=== PATIENT | male | born 1950 | race Caucasian/White ===

== ENCOUNTER 2018-06-25 20:19 | Emergency (ER) | payer OTHER, MEDICAID ==
[~2018-06-25] VITALS: Ht 182.8 cm; Wt 113.4 kg
--- NOTE | ~2018-06-25 | EKG ---
[place], [place] ELECTROCARDIOGRAM REPORT NAME: CHERIE HADDAD UNIT #: [id number] ROOM: DOCTOR: EPIPHANY DRAFT REPORT BIRTHDATE: [birth year] [facility] Test Date: 2018-06-25 Test Time: 20:40:13 Pat Name: CHERIE HADDAD Department: ER Room: Gender: [employer] Sales Representative: Jie Mclain : 1950 Requested By: JAYME CHAHAL Order Number: [id number] Reading MD: Esperanza Molina MD Measurements Intervals [place] Rate: 107 P: 25 KS: 51 QRS: -48 QRSD: 114 T: 46 QT: 340 QTc: 454 Interpretive Statements Sinus tachycardia Multiple ventricular premature complexes Left anterior fascicular block Anterior infarct, old Electronically Signed On 06-27-2018 2:16:06 PST by Esperanza Molina MD CM:EKGRPT:ELECTROCARDIOGRAM REPORT 39 JAYME FLOREZ DRAFT REPORT JAYME CHAHAL DO
[~2018-06-25 20:19] MED LIST: ACETAMINOPHEN-H1 TA2 PO; AMLODIPINE10 MG PO; ANAPROX DS550 MG PO; ANTIVERT/2525 MG PO; ASPIRIN CHEWABL81 M1 PO; ASPIRIN ENTERIC81 M1 PO; ASPIRIN325 MG PO; ATIVAN1 MG PO; BACTRIM DS 8001 TA1 PO; BLOOD PRESSURE MED; BLOOD PRESSURE PILL PO; CIPRO500 MG PO; CIPROFLOXACIN500 M4 PO; COREG25 MG PO; DESITIN MAXIMUM S40% T; DOXYCYCLINE MO100 M1 PO; FAMOTIDINE40 MG PO; FENOFIBRATE160 MG PO; FUROSEMIDE20 MG PO; GLUCOPHAGE500 M1 PO; GLYBURIDE5 MG PO; HUMALOG100 U/ML SC; LANTUS100 U/ML SC; LISINOPRIL10 M1 PO; LISINOPRIL10 MG PO; LISINOPRIL5 MG PO; LOMOTIL 0.025 M1 TA1 PO; LOPRESSOR25 MG PO; MECLIZINE HCL25 M2 PO; NORVASC10 MG PO; NOVOLOG 70/30 M10 ML SC; NOVOLOG100 U/ML SC; PEPCID20 MG PO; PLAVIX75 M1 PO; PLAVIX75 MG PO; PRAVACHOL20 MG PO; PRAVACHOL80 M1 PO; PRILOSEC40 MG PO; VICODIN 5/500 505 MG PO; VISTARIL25 MG PO; VOLTAREN50 M1 PO; ZESTRIL,PRINIVI20 MG PO
[2018-06-25 20:47] LABS: BASO % 0.6 % (0.0-1.0); EOS # 0.1 10*3/uL (0.0-0.4); EOS % 1.1 % (1.0-4.0); HEMATOCRIT 39.8 % (42.0-52.0); LYMPH # 1.2 10*3/uL (1.3-4.4); LYMPH % 25.3 % (27.0-41.0); MEAN CELL VOLUME 88.8 fl (80.0-94.0); MEAN CORPUSCULAR HGB CONC 32.7 g/dl (33.0-37.0); MEAN PLATELET VOLUME 9.3 fl (9.6-12.3); MONO # 0.3 10*3/uL (0.1-1.0); NEUT # 3.1 10*3/uL (2.3-7.9); NEUT % 65.8 % (47.0-73.0); PLATELET COUNT AUTOMATED 181 10*3/uL (130-400); RED BLOOD COUNT 4.48 10*6/uL (4.50-5.90); RED CELL DISTRI WIDTH 13.8 % (0-14.5); WHITE BLOOD COUNT 4.7 10*3/uL (4.8-10.8)
[2018-06-25 20:56] LABS: BILIRUBIN NEGATIVE (NEGATIVE); BLOOD NEGATIVE (NEGATIVE); CLARITY CLEAR (CLEAR); COLOR YELLOW (YELLOW); GLUCOSE 3+ (NEGATIVE); KETONE NEGATIVE (NEGATIVE); LEUKO ESTERASE NEGATIVE (NEGATIVE); NITRITE NEGATIVE (NEGATIVE); PH 6.5 (5.0-9.0); SPECIFIC GRAVITY <= 1.005 (1.005-1.030); UROBILINOGEN 0.2 E.U./dl (0.2-1.0)
[2018-06-25 21:03] LABS: ACETAMINOPHEN (TYLENOL) < 5.0 ug/ml (10-30); ALBUMIN 3.7 gm/dl (3.1-4.5); ALKALINE PHOSPHATASE 120 U/L (45-117); BUN 17 mg/dl (7-24); CHLORIDE 100 mmol/L (98-107); CREATININE 1.03 mg/dL (0.70-1.30); POTASSIUM 4.1 mmol/L (3.5-5.1); SGOT/AST 12 IU/L (3-35); SGPT/ALT 24 U/L (12-78); SODIUM 138 mmol/L (136-145); TOTAL PROTEIN 8.2 gm/dL (6.4-8.2)
[2018-06-25 21:04] LABS: ETHYL ALCOHOL < 3.0 mg/dl (<3)
[2018-06-25 21:04] LABS: URINE AMPHETAMINES < 1000 (1000ng/ml); URINE BARBITURATES < 200 (200ng/ml); URINE BENZODIAZEPINES < 200 (200ng/ml); URINE CANNABINOIDS (THC) < 50 (50ng/ml); URINE COCAINE < 300 (300ng/ml); URINE METHADONE < 300 (300ng/ml); URINE OPIATES < 300 (300ng/ml); URINE PHENCYCLIDINE < 25 (25ng/ml)
[2018-06-25 21:09] LABS: BACTERIA TRACE; EPITHELIAL CELLS 0-2; WBC 0-2 wbc/hpf (0-5)
== END 2018-06-25 22:14 | disposition home or self-care (01) ==
LOC: ED 20:19
PROVIDERS: Emergency Medicine
DX: Z13.30 Encounter for screening examination for mental health and behavioral disorders, unspecified (principal); E11.9 Type 2 diabetes mellitus without complications; I10 Essential (primary) hypertension; I25.2 Old myocardial infarction; Z88.8 Allergy status to other drugs, medicaments and biological substances; Z79.4 Long term (current) use of insulin; Z79.82 Long term (current) use of aspirin; Z79.899 Other long term (current) drug therapy; Z79.84 Long term (current) use of oral hypoglycemic drugs